=== PATIENT | male | born 1955 | race Caucasian/White ===

== ENCOUNTER 2023-12-19 18:42 | Inpatient (IN) | payer MEDICARE, MEDICAID ==
[~2023-12-19] VITALS: Ht 182.9 cm; Wt 122.5 kg
[2023-12-19] MEDS: NITROGLYCERIN 0.4MG TABLET SL SL PRN (19:02)
[2023-12-19 19:03] LABS: BASOPHILS % 0.9 % (0.0-2.0); HEMATOCRIT. 46.9 % (42.0-52.0); LYMPHOCYTES % 13.5 % (20.0-50.0); MEAN CORPUSCULAR HEMOGLOBIN 30.6 pg (28.0-32.0); MEAN CORPUSCULAR HGB CONC 34.1 g/dL (31.0-37.0); MEAN CORPUSCULAR VOLUME 89.6 fL (80.0-94.0); MEAN PLATELET VOLUME 8.3 fl (7.4-10.4); MONOCYTES % 7.9 % (2.0-8.0); NEUTROPHILS % 76.7 % (40.0-76.0); PLATELET 192 x1000/uL (130-400); RED BLOOD CELL COUNT 5.24 mill/uL (4.7-6.1); RED CELL DISTRIBUTION WIDTH 15.6 % (11.6-14.6); WHITE BLOOD COUNT 9.6 x1000/uL (4.5-11.0)
[2023-12-19 19:13] LABS: CHLORIDE 103 mEq/L (98-107); POTASSIUM 5.3 mEq/L (3.5-5.1); SODIUM 137 mEq/L (136-145)
[2023-12-19 19:14] LABS: CALCIUM 9.4 mg/dL (8.7-10.4); CARBON DIOXIDE 27 mEq/L (21-32)
[2023-12-19 19:16] LABS: INR 0.9; PROTHROMBIN TIME 10.3 sec (9.6-11.0)
[2023-12-19] MEDS ORDERED: LIDOCAINE HCL 1% 20ML VIAL (Pyxis) INJ ONE (19:16)
[2023-12-19] MEDS ORDERED: MIDAZOLAM HCL 2 MG/2 ML VIAL ONE (19:16)
[2023-12-19] MEDS ORDERED: HEPARIN 1000 UNITS/ML 10ML ONE ×2 (19:16→20:02)
[2023-12-19] MEDS ORDERED: FENTANYL CITRATE/PF 50MCG/ML 2ML VIAL ONE (19:16)
[2023-12-19] MEDS ORDERED: IODIXANOL 320MG/ML 100 ML BOTTLE IV ONE ×2 (19:16→20:02)
[2023-12-19 19:19] LABS: GLUCOSE 99 mg/dL (70-105); UREA NITROGEN BLOOD 20 mg/dL (9-23)
[2023-12-19] MEDS ORDERED: EPINEPHRINE 0.1MG/ML (1:10,000) 10ML SYR ONE (19:20)
[2023-12-19] MEDS ORDERED: ATROPINE SULFATE 1MG/10ML SYR ONE (19:21)
[2023-12-19 19:30] LABS: ETHANOL BLOOD < 10 mg/dL (<10); TROPONIN I HIGH SENSITIVITY 357 ng/L (3.0-53)
[2023-12-19 19:41] LABS: *AMPHETAMINES SCREEN URINE PRESUMPTIVE POSITIVE (NEGATIVE); *BARBITURATES SCREEN URINE NEGATIVE (NEGATIVE); *BENZODIAZEPINES SCREEN URINE NEGATIVE (NEGATIVE); *COCAINE SCREEN URINE NEGATIVE (NEGATIVE); CANNABINOID URINE SCREEN NEGATIVE (NEGATIVE); ECSTASY MDMA SCREEN URINE NEGATIVE (NEGATIVE); METHADONE URINE SCREEN NEGATIVE (NEGATIVE); OPIATES URINE SCREEN NEGATIVE (NEGATIVE); PHENCYCLIDINE URINE SCREEN NEGATIVE (NEGATIVE)
[2023-12-19] MEDS ORDERED: DEXTROSE 50% WATER 50ML SYRINGE IV PRN (20:00)
[2023-12-19] MEDS ORDERED: DOCUSATE SODIUM 100MG CAPSULE PO PRN (20:00)
[2023-12-19] MEDS ORDERED: CLONIDINE 0.1MG TABLET PO PRN (20:00)
[2023-12-19] MEDS ORDERED: IPRATROPIUM/ALBUTEROL 0.5-3(2.5)MG/3ML NEB HHN PRN (20:00)
[2023-12-19] MEDS ORDERED: ACETAMINOPHEN 325MG TABLET PO PRN ×2 (20:00→20:30)
[2023-12-19] MEDS ORDERED: GUAIFENESIN 200MG/10ML SUGAR FREE UDC PO PRN (20:00)
[2023-12-19] MEDS ORDERED: ONDANSETRON HCL 4MG/2ML INJ IV PRN ×2 (20:00→20:30)
[2023-12-19] MEDS ORDERED: MAGNESIUM/ALUMINUM HYDROXIDE/SIMETHICONE 30ML UDC PO PRN (20:00)
[2023-12-19] MEDS ORDERED: TICAGRELOR 90 MG TABLET PO ONE (20:03)
[2023-12-19] MEDS ORDERED: MORPHINE SULFATE 2 MG/ML CPJ (NOT FOR IM USE) IV PRN ×2 (20:30)
[2023-12-19] MEDS ORDERED: CLOPIDOGREL 75MG TABLET PO NR (20:30)
[2023-12-19] MEDS ORDERED: ATROPINE SULFATE 1MG/10ML SYR IV PRN (20:30)
[2023-12-19 20:40] LABS: ALANINE AMINOTRANSFERASE 19 IU/L (10-49); ALBUMIN 4.3 g/dL (3.2-4.8); ASPARTATE AMINOTRANSFERASE 35 IU/L (<34); BILIRUBIN DIRECT 0.1 mg/dL (<=3.0); BILIRUBIN TOTAL 0.4 mg/dL (0.1-1.0)
[2023-12-19] MEDS ORDERED: NITROGLYCERIN 50MG PREMIX 250 ML IV PRN ×2 (21:00)
[2023-12-19 22:00] VITALS: BP_SYST 135; BP_SYST 152; BP_DIAS 82; BP_DIAS 90; PULSE 75; PULSE 77; RESP 17; RESP 21; TEMP 98.3
[2023-12-19 22:30] VITALS: BP 152/90; PULSE 70; RESP 14
[2023-12-19] MEDS: BLOOD SUGAR DIAGNOSTIC STRIP TEST SCH (22:30)
[2023-12-19] MEDS: INSULIN LISPRO 100 UNITS/ML SUBCUT SCH (22:30)
[2023-12-19] MEDS: SODIUM CHLORIDE 0.45% 1,000 ML IV SCH (22:31)
[2023-12-19] MEDS: ATORVASTATIN CALCIUM 40MG TABLET PO SCH (22:31)
[2023-12-19] MEDS: LISINOPRIL 2.5MG TABLET PO NR (22:32)
[2023-12-19 23:00] VITALS: BP 146/81; PULSE 79; RESP 15
[2023-12-19 23:30] VITALS: BP 171/98; PULSE 74; RESP 16
[2023-12-20] VITALS (48 sets, daily range): BP systolic 68–171; BP diastolic 39–125; PULSE 57–89; RESP 13–26; TEMP 97.4–98.7; O2SAT 99
[2023-12-20] MEDS: HYDRALAZINE 20MG/ML VIAL IV PRN (02:15)
[2023-12-20 02:24] LABS: TROPONIN I HIGH SENSITIVITY 173051 ng/L (3.0-53)
[2023-12-20 05:50] LABS: BASOPHILS % 0.7 % (0.0-2.0); EOSINOPHILS % 0.9 % (0.0-5.0); HEMATOCRIT. 48.1 % (42.0-52.0); HEMOGLOBIN. 16.1 g/dL (14.0-18.0); MEAN CORPUSCULAR HEMOGLOBIN 30.1 pg (28.0-32.0); MEAN CORPUSCULAR HGB CONC 33.5 g/dL (31.0-37.0); MEAN CORPUSCULAR VOLUME 89.9 fL (80.0-94.0); MONOCYTES % 9.5 % (2.0-8.0); NEUTROPHILS % 70.9 % (40.0-76.0); PLATELET 192 x1000/uL (130-400); RED BLOOD CELL COUNT 5.36 mill/uL (4.7-6.1); RED CELL DISTRIBUTION WIDTH 15.3 % (11.6-14.6); WHITE BLOOD COUNT 9.4 x1000/uL (4.5-11.0)
[2023-12-20 06:00] LABS: CHLORIDE 105 mEq/L (98-107); POTASSIUM 3.9 mEq/L (3.5-5.1); SODIUM 135 mEq/L (136-145)
[2023-12-20 06:01] LABS: CALCIUM 8.9 mg/dL (8.7-10.4); CARBON DIOXIDE 21 mEq/L (21-32)
[2023-12-20 06:06] LABS: CREATININE 0.7 mg/dL (0.6-1.3); GLUCOSE 104 mg/dL (70-105); TRIGLYCERIDE 93 mg/dL (0-150); UREA NITROGEN BLOOD 15 mg/dL (9-23)
[2023-12-20 06:07] LABS: LDL CHOLESTEROL 135 mg/dL (5-100)
[2023-12-20 06:08] LABS: CHOLESTEROL 211 mg/dL (<200); HDL CHOLESTEROL 61 mg/dL (>55)
[2023-12-20 06:09] LABS: THYROID STIMULATING HORMONE 0.55 uIU/mL (0.55-4.78)
[2023-12-20] MEDS: LISINOPRIL 5MG TABLET PO SCH (08:55)
[2023-12-20] MEDS: CLOPIDOGREL 75MG TABLET PO SCH (08:55)
[2023-12-20] MEDS: ASPIRIN 325MG TABLET PO SCH (08:55)
[2023-12-20] MEDS: METOPROLOL TARTRATE 25MG TABLET PO SCH (08:56)
[2023-12-20] MEDS: IPRATROPIUM/ALBUTEROL 0.5-3(2.5)MG/3ML NEB HHN SCH (12:08)
[2023-12-20] MEDS: BUDESONIDE 0.5MG/2ML NEB HHN SCH (12:08)
[2023-12-20] MEDS ORDERED: NALOXONE HCL 0.4MG/ML VIAL IV PRN (13:30)
[2023-12-21] VITALS (8 sets, daily range): BP systolic 104–137; BP diastolic 43–69; PULSE 64–76; RESP 16–22; TEMP 96.6–98.7; O2SAT 96–97
[2023-12-21] MEDS ORDERED: ASPIRIN 81MG TABLET PO SCH (09:00)
[2023-12-21] MEDS: AMLODIPINE 5MG TABLET PO SCH (09:00)
[2023-12-21] MEDS: ASPIRIN 81MG TABLET PO SCH (09:52)
[2023-12-22] VITALS (9 sets, daily range): BP systolic 94–127; BP diastolic 42–76; PULSE 58–73; RESP 16–22; TEMP 97.3–98.6; O2SAT 97
[2023-12-22 06:25] LABS: HEMATOCRIT 47.4 % (42.0-52.0); HEMOGLOBIN 15.6 g/dL (14.0-18.0); MEAN CORPUSCULAR HEMOGLOBIN 29.9 pg (28.0-32.0); MEAN CORPUSCULAR HGB CONC 32.9 g/dL (31.0-37.0); MEAN CORPUSCULAR VOLUME 90.8 fL (80.0-94.0); PLATELET 175 x1000/uL (130-400); RED BLOOD CELL COUNT 5.21 mill/uL (4.7-6.1); RED CELL DISTRIBUTION WIDTH 15.3 % (11.6-14.6); WHITE BLOOD COUNT 6.7 x1000/uL (4.5-11.0)
[2023-12-22 06:31] LABS: CHLORIDE 107 mEq/L (98-107); POTASSIUM 4.1 mEq/L (3.5-5.1); SODIUM 138 mEq/L (136-145)
[2023-12-22 06:32] LABS: CARBON DIOXIDE 23 mEq/L (21-32)
[2023-12-22 06:33] LABS: CALCIUM 8.8 mg/dL (8.7-10.4)
[2023-12-22 06:37] LABS: CREATININE 0.8 mg/dL (0.6-1.3); GLUCOSE 107 mg/dL (70-105); UREA NITROGEN BLOOD 17 mg/dL (9-23)
[2023-12-22 06:40] LABS: PHOSPHORUS 2.3 mg/dL (2.5-4.9)
[2023-12-22] MEDS ORDERED: LIP40 PO (11:06)
[2023-12-22] MEDS ORDERED: METO25TA6 PO (11:06)
[2023-12-22] MEDS ORDERED: ASPI-1160 PO (11:06)
[2023-12-22] MEDS ORDERED: AMLO5TAB88 PO (11:06)
[2023-12-22] MEDS ORDERED: CLOP-31 PO (11:06)
[2023-12-22] MEDS ORDERED: LISI-186 PO (11:06)
[2023-12-23 00:20] VITALS: BP 129/78; PULSE 57; RESP 18; TEMP 97.8
[2023-12-23 01:16] VITALS: PULSE 57; RESP 16
[2023-12-23 05:17] VITALS: BP 105/56; PULSE 64; RESP 18; TEMP 97.5
[2023-12-23 08:00] VITALS: BP 122/73; PULSE 62; RESP 18; TEMP 98.6
[2023-12-23 08:47] VITALS: PULSE 60; RESP 16
[2023-12-23 12:12] VITALS: BP 107/74; PULSE 65; RESP 20; TEMP 97.6
== END 2023-12-23 12:30 | disposition home health service (06) | DRG 321 ==
LOC: ER 18:42 → EDBEDREQ 19:41 → EDBEDREQTM 19:41 → EDBEDREQSVC 19:41 → CVICU 21:55 → 7WST 12-20 22:24
PROVIDERS: ADMIT Hospitalist; ATTEND Hospitalist
PROC: 4A023N7 Measurement of Cardiac Sampling and Pressure, Left Heart, Percutaneous Approach (ICD-10-PCS; principal; 2023-12-19)
PROC: 027034Z Dilation of Coronary Artery, One Artery with Drug-eluting Intraluminal Device, Percutaneous Approach (ICD-10-PCS; 2023-12-19)
PROC: B2111ZZ Fluoroscopy of Multiple Coronary Arteries using Low Osmolar Contrast (ICD-10-PCS; 2023-12-19)
PROC: B2151ZZ Fluoroscopy of Left Heart using Low Osmolar Contrast (ICD-10-PCS; 2023-12-19)
DX: I21.09 ST elevation (STEMI) myocardial infarction involving other coronary artery of anterior wall (principal); I50.21 Acute systolic (congestive) heart failure; I11.0 Hypertensive heart disease with heart failure; Z79.82 Long term (current) use of aspirin; Z79.899 Other long term (current) drug therapy; Z95.5 Presence of coronary angioplasty implant and graft; E87.5 Hyperkalemia; F14.10 Cocaine abuse, uncomplicated; J44.9 Chronic obstructive pulmonary disease, unspecified; I16.0 Hypertensive urgency; F17.200 Nicotine dependence, unspecified, uncomplicated
CPT/HCPCS: 36415; 71045; 80048; 80061; 80076; 80305; 80320; 82962; 83036; 83735; 83880; 84100; 84439; 84443; 84484; 85025; 85027; 85347; 86850; 86900; 92941; 93005; 93306; 93458; 93970; 94640; 99291; C1725; C1760; C1769; C1874; C1887; C1893; J0360; J0461; J1644; J1815; J2250; J3010; J3490; J7626; Q9967; G0480; J8499

== ENCOUNTER 2025-03-14 18:35 | Emergency (ER) | payer MEDICAID, MEDICARE ==
[~2025-03-14] VITALS: Ht 182.9 cm; Wt 90.0 kg
[~2025-03-14 18:35] MED LIST: ASPI-1406 PO; ASPI-1497 MT; ATOR40TA70 MT; BUPR-114 PO; BUPR100T13 MT; CLOP-31 MT; CLOP-31 PO; EMPA10TA MT; EMPA10TA PO; FAMO-135 MT; FAMO20TA8 MT; FLUT12AE7 INH; FURO-151 MT; FURO40TA5 MT; LIP40 PO; MIRT-89 MT; MIRT-89 PO; NALT50TA5 MT; NALT50TA6 PO; SPIR25TA PO; TRAZ-251 MT; TRAZ-251 PO
[2025-03-14 18:37] VITALS: O2SAT 99
[2025-03-14 19:20] LABS: *AMPHETAMINES SCREEN URINE PRESUMPTIVE POSITIVE (NEGATIVE); *BARBITURATES SCREEN URINE NEGATIVE (NEGATIVE); *BENZODIAZEPINES SCREEN URINE NEGATIVE (NEGATIVE); *COCAINE SCREEN URINE PRESUMPTIVE POSITIVE (NEGATIVE); CANNABINOID URINE SCREEN NEGATIVE (NEGATIVE); ECSTASY MDMA SCREEN URINE CONF.TEST INDICATED (NEGATIVE); METHADONE URINE SCREEN NEGATIVE (NEGATIVE); OPIATES URINE SCREEN NEGATIVE (NEGATIVE); PHENCYCLIDINE URINE SCREEN NEGATIVE (NEGATIVE)
[2025-03-14 19:58] LABS: BASOPHILS % 0.7 % (0.0-2.0); EOSINOPHILS % 1.2 % (0.0-5.0); HEMATOCRIT. 43.4 % (42.0-52.0); HEMOGLOBIN. 14.7 g/dL (14.0-18.0); LYMPHOCYTES % 27.7 % (20.0-50.0); MEAN PLATELET VOLUME 7.9 fl (7.4-10.4); MONOCYTES % 9.4 % (2.0-8.0); NEUTROPHILS % 61.0 % (40.0-76.0); PLATELET 156 x1000/uL (130-400); RED BLOOD CELL COUNT 4.85 mill/uL (4.7-6.1); RED CELL DISTRIBUTION WIDTH 15.0 % (11.6-14.6)
[2025-03-14 20:13] LABS: CREATININE 0.9 mg/dL (0.6-1.3)
[2025-03-14 20:14] LABS: ETHANOL BLOOD 90 mg/dL (<10); UREA NITROGEN BLOOD 23 mg/dL (9-23)
[2025-03-14 20:15] LABS: ASPARTATE AMINOTRANSFERASE 23 IU/L (<34)
[2025-03-14 20:16] LABS: BILIRUBIN DIRECT 0.3 mg/dL (<=3.0); BILIRUBIN TOTAL 1.0 mg/dL (0.1-1.0); PROTEIN TOTAL 6.3 g/dL (6.0-8.3)
[2025-03-15] MEDS: ACETAMINOPHEN 325MG TABLET PO ONE (08:54)
[2025-03-15 21:16] LABS: CLARITY URINE CLEAR (CLEAR); COLOR URINE YELLOW (YELLOW); GLUCOSE URINE NEGATIVE (NEGATIVE); KETONES URINE TRACE (NEGATIVE); LEUKOCYTE ESTERASE URINE NEGATIVE (NEGATIVE); NITRITE URINE NEGATIVE (NEGATIVE); OCCULT BLOOD URINE NEGATIVE (NEGATIVE); PH URINE 7.5 (4.5-8.0); PROTEIN URINE NEGATIVE (NEGATIVE); SPECIFIC GRAVITY URINE 1.026 (1.005-1.030); UROBILINOGEN URINE 2.0 E.U./dL (0.2-1.0)
[2025-03-15 21:38] LABS: RBC URINE 0-2 /hpf (0-2); SQUAMOUS EPITHELIAL CELL URINE 1+ /lpf (RARE/1+)
[2025-03-15 21:39] LABS: BACTERIA URINE TRACE
[2025-03-15] MEDS: DIPHENHYDRAMINE 25MG CAPSULE PO ONE (21:45)
[2025-03-16 11:53] VITALS: BP 124/82; PULSE 74; RESP 16; TEMP 36.9; O2SAT 99
== END 2025-03-16 12:11 | disposition home or self-care (01) ==
LOC: ER 18:35
DX: S80.02XA Contusion of left knee, initial encounter (principal); R45.851 Suicidal ideations; F15.90 Other stimulant use, unspecified, uncomplicated; F17.200 Nicotine dependence, unspecified, uncomplicated; F19.10 Other psychoactive substance abuse, uncomplicated; I11.0 Hypertensive heart disease with heart failure; I50.9 Heart failure, unspecified; I25.2 Old myocardial infarction; J44.9 Chronic obstructive pulmonary disease, unspecified; Z79.899 Other long term (current) drug therapy; Z79.84 Long term (current) use of oral hypoglycemic drugs; Z79.82 Long term (current) use of aspirin; Z79.51 Long term (current) use of inhaled steroids; Z79.02 Long term (current) use of antithrombotics/antiplatelets; Z20.822 Contact with and (suspected) exposure to COVID-19; W19.XXXA Unspecified fall, initial encounter; Y93.89 Activity, other specified; Y92.009 Unspecified place in unspecified non-institutional (private) residence as the place of occurrence of the external cause; Y99.8 Other external cause status
CPT/HCPCS: 80076; 80305; 80048; 81003; 80307; 80329; 80320; 83735; 85025; 36415; 73562; 29505; 99285; 87426; Q0163; G0480